=== PATIENT | male | born 1990 | race Caucasian/White ===

== ENCOUNTER 2016-09-06 10:33 | Emergency (ER) | payer SELFPAY ==
[2016-09-06 10:51] VITALS: BP 126/75
--- NOTE | 2016-09-06 11:25 | Emergency Department Report ---
Entered by ADÁN HIGGINBOTHAM, acting as scribe for ROGERS CHEN NP. Chief Complaint: Fall Stated Complaint: COLLARBONE INJURY/FALL Time Seen by Provider: 09/06/16 10:50 - HPI History of Present Illness: 25 y/o male presents c/o pain in right collarbone after injury that occured skateboarding at 6am this morning. Pt notes taking pain killers and a muscle relaxant at around 7am. ambulatory although holding right arm r humeral head displaced ant it appears. good pulses rapid cap refill VSS no focal or neuro deficit - ROS Review of Systems: as noted in HPI - Exam Vital Signs: Vital Signs 09/06/16 10:47 Temperature 98.5 F Pulse Rate 75 Respiratory 20 Rate Blood Pressure 126/75 O2 Sat by Pulse 99 Oximetry Physical Exam: as noted in HPI MSE screening note: Focused history and physical exam performed. Due to findings the following was ordered: ED Disposition for MSE Condition: Stable This documentation as recorded by the scribe,ADÁN HIGGINBOTHAM,accurately reflects the service I personally performed and the decisions made by ,ROGERS CHEN NP.
[2016-09-06] MEDS ORDERED: NORCO 5/325 PO ONE (12:05)
--- NOTE | 2016-09-06 12:30 | XRay Report ---
RIGHT SHOULDER, 2 VIEWS History: Right shoulder pain. Findings: A transverse fracture is identified through the middle third of the right clavicle with 1.4 cm inferior displacement of the distal fragment. The scapula and proximal humerus are intact. Normal articulation at the shoulder joint. Impression: Mildly displaced right clavicle fracture.
--- NOTE | 2016-09-06 12:43 | Emergency Department Report ---
ED Upper Extremity Inj HPI - General Chief Complaint: Fall Stated Complaint: COLLARBONE INJURY/FALL Time Seen by Provider: 09/06/16 12:32 Source: patient Mode of arrival: Ambulatory Limitations: No Limitations - History of Present Illness Complaint: Injury to:: left -: Sudden Time: 06:00 Other Injuries: none Handedness: right Place: home Improves With: none Worsens With: none Context: fall, skateboard accident Associated Symptoms: denies other symptoms Treatments Prior to Arrival: NSAIDS, other (wifes muscle relaxer and pain pill) - Related Data Previous Rx's Medication Instructions Recorded Last Taken Type Cyclobenzaprine [Flexeril] 10 mg PO BID PRN #15 tablet 09/06/16 Unknown Rx traMADol [Ultram] 50 mg PO Q6HR PRN #15 tablet 09/06/16 Unknown Rx Allergies Allergy/AdvReac Type Severity Reaction Status Date / Time methylphenidate HCl Allergy Unknown Verified 09/06/16 10:46 [From Ritalin] ED Review of Systems ROS: Stated complaint: COLLARBONE INJURY/FALL Other details as noted in HPI Comment: All other systems reviewed and negative Constitutional: no symptoms reported Eyes: as per HPI ENT: as per HPI Respiratory: no symptoms reported Cardiovascular: as per HPI Endocrine: no symptoms reported Gastrointestinal: as per HPI Genitourinary: as per HPI Musculoskeletal: as per HPI, other (pain r shoulder; good pulses. elbow and wrist full rom. pain w movement of shoulder. slight tenting.). denies: joint swelling, arthralgia, myalgia Skin: as per HPI Neurological: as per HPI Psychiatric: as per HPI Hematological/Lymphatic: as per HPI ED Past Medical Hx - Past Medical History Previous Medical History?: Yes Additional medical history: ADHD - Surgical History Past Surgical History?: No - Family History Family history: no significant - Social History Smoking Status: Current Every Day Smoker Substance Use Type: None - Medications Home Medications: Home Medications Medication Instructions Recorded Confirmed Last Taken Type Cyclobenzaprine [Flexeril] 10 mg PO BID PRN #15 tablet 09/06/16 Unknown Rx traMADol [Ultram] 50 mg PO Q6HR PRN #15 tablet 09/06/16 Unknown Rx ED Physical Exam - General Limitations: No Limitations General appearance: alert, in no apparent distress - Head Head exam: Present: atraumatic - Eye Eye exam: Present: normal appearance Pupils: Present: normal accommodation - ENT ENT exam: Present: normal exam - Neck Neck exam: Present: normal inspection - Respiratory Respiratory exam: Present: normal lung sounds bilaterally - Cardiovascular Cardiovascular Exam: Present: regular rate, normal rhythm - GI/Abdominal GI/Abdominal exam: Present: soft - Rectal Rectal exam: Present: deferred - Expanded Upper Extremity Exam Left Shoulder Exam: Present: tenderness, swelling, deformity. Absent: abrasion, laceration, ecchymosis, crepidus, dislocation, erythema, tenderness over AC joint Elbow exam: Present: normal inspection Forearm Wrist exam: Present: normal inspection Hand Wrist exam: Present: normal inspection Vascular: Present: normal capillary refill, radial pulse, brachial pulse, ulnar pulse - Back Exam Back exam: Present: normal inspection - Neurological Exam Neurological exam: Present: alert, altered, oriented X3 - Psychiatric Psychiatric exam: Present: normal affect, normal mood ED Course Vital Signs 09/06/16 09/06/16 10:47 13:26 Temperature 98.5 F Pulse Rate 75 Respiratory 20 20 Rate Blood Pressure 126/75 O2 Sat by Pulse 99 Oximetry - Reevaluation(s) Reevaluation #1: 09/06/[address] Gustafson immobilsedrick mediocated for pain discussed ortho follow up with and pt dc home w pain meds. ED Medical Decision Making - Radiology Data Radiology results: report reviewed, image reviewed interpreted by me: ashutosh reich sp skateboarding Critical care attestation.: If time is entered above; I have spent that time in minutes in the direct care of this critically ill patient, excluding procedure time. ED Disposition Clinical Impression: Fracture, clavicle Disposition: DISCHARGED TO HOME OR SELFCARE Is pt being admited?: No Does the pt Need Aspirin: No Condition: Good Instructions: Clavicle Fracture (ED) Additional Instructions: ice sling rest motrin for pain meds as ordered here for severe pain no alcohol or other with these meds follow up [facility] as instructed Prescriptions: Cyclobenzaprine [Flexeril] 10 mg PO BID PRN #15 tablet PRN Reason: Muscle Spasm traMADol [Ultram] 50 mg PO Q6HR PRN #15 tablet PRN Reason: Pain Referrals: PRIMARY CARE, [Primary Care Provider] - 3-5 Days URI GAMBOA MD [Staff Physician] - 3-5 Days Forms: Work/School Release Form(ED) Time of Disposition: 12:41
== END 2016-09-06 13:26 | disposition home or self-care (01) ==
LOC: ED 10:33
DX: S42.002A Fracture of unspecified part of left clavicle, initial encounter for closed fracture (principal); F90.9 Attention-deficit hyperactivity disorder, unspecified type; F17.200 Nicotine dependence, unspecified, uncomplicated; W01.0XXA Fall on same level from slipping, tripping and stumbling without subsequent striking against object, initial encounter; Y93.51 Activity, roller skating (inline) and skateboarding; Y92.89 Other specified places as the place of occurrence of the external cause; Y99.8 Other external cause status; Z88.8 Allergy status to other drugs, medicaments and biological substances
CPT/HCPCS: 99283